=== PATIENT | female | born 1955 | race Caucasian/White ===

== ENCOUNTER → 2017-02-07 | Day surgery (SDC) | payer BC ==
[~2017-02-07] MED LIST: B COMPLEX1 EACH; BYSTOLIC5 MG PO; CALCIUM 600+D1 EACH PO; DICLOFENAC SODI50 MG PO; EFFEXOR75 M2 PO; FISH OIL 1,2001 EAC5; HARD NAILS2500 MCG PO; MELATONIN10 M1 PO; MICROZIDE12.5 M1 PO; MULTI-DAY VITA1 EACH; SIMVASTATIN40 MG PO; VITAMIN D2000 UNIT PO; ZETIA PO; ZYRTEC10 M2 PO
--- NOTE | ~2017-02-07 | OR ---
Unit #: [id number] #: [id number] Patient: ELISHA RYAN [id number] [address] [address] [id number] MR#: [id number] NAME: ELISHA RYAN ROOM: Date of Procedure: 02/07/2017 Admission Date: 02/07/2017 Surgeon: Blayne Dodge M.D. : 1955 Attending Physician: Blayne Dodge M.D. Primary Care Physician: Charbel Ramírez M.D. OPERATIVE REPORT JOB NOTE: CC: DR. CHARBEL RAMÍREZ PROCEDURE PERFORMED Colonoscopy to cecum with biopsy. INDICATIONS FOR PROCEDURE Family history of colon cancer. MEDICATIONS Monitored anesthesia. POSTOPERATIVE FINDINGS 1. Polyp, sigmoid colon, 3 mm, removed using biopsy forceps. 2. Good prep. 3. Internal hemorrhoids. PLAN Follow up on pathology report. Repeat colonoscopy in 5 years given family history of colon cancer in brother. DESCRIPTION OF PROCEDURE The patient was explained of the procedure, risks, and benefits along with risks and benefits of anesthesia. The patient was brought to the endoscopy room. Propofol anesthesia was given. Rectal exam was done, which was normal. Colonoscope was lubricated, passed up the rectum, advanced under direct vision all the way to cecum. Cecum was identified by ileocecal valve and appendiceal orifice. Small polyp seen in sigmoid colon was removed using biopsy forceps. I retroflexed in the rectum, small hemorrhoids seen. The scope was gently pulled out. The patient tolerated it well. Dictated by... Damian Lima/alan TD: 02/08/2017 16:59 JOB #: [id number] Unit #: [id number] #: [id number] Patient: ELISHA RYAN OPERATIVE REPORT Page 1 of 1 X Blayne Dodge MD X PROCEDURE OPERATIVE NOTE
== END | disposition home or self-care (01) ==
LOC: COPS 12-29 09:30
DX: Z12.11 Encounter for screening for malignant neoplasm of colon (principal); K63.5 Polyp of colon; K64.8 Other hemorrhoids; I10 Essential (primary) hypertension; E66.9 Obesity, unspecified; J45.909 Unspecified asthma, uncomplicated; Z68.41 Body mass index [BMI] 40.0-44.9, adult; Z80.0 Family history of malignant neoplasm of digestive organs; Z88.0 Allergy status to penicillin; Z90.710 Acquired absence of both cervix and uterus; Z98.890 Other specified postprocedural states; Z79.899 Other long term (current) drug therapy; Z79.1 Long term (current) use of non-steroidal anti-inflammatories (NSAID)
CPT/HCPCS: 88305